=== PATIENT | female | born 1995 | race Caucasian/White ===

== ENCOUNTER 2019-06-01 00:55 | Emergency (ER) | payer SELFPAY ==
--- NOTE | 2019-06-01 01:36 | RADIOLOGY REPORT (SQ) ---
EXAM DESCRIPTION: XR SHOULDER 2 OR MORE VIEWS COMPLETED DATE/TME: 06/01/2019 00:00 CLINICAL HISTORY: 23 years, Female, bone pain COMPARISON: None. FINDINGS: No fracture or dislocation. Soft tissues are unremarkable. IMPRESSION: No acute abnormality.
[2019-06-01] MEDS ORDERED: LIDOCAINE 5% (700 MG) TRANSDERMAL ADH..PATCH TP ONE (01:54)
[2019-06-01] MEDS ORDERED: DEXAMETHASONE SOD PHOS INJ 10 MG/1 ML VIAL IM ONE (01:54)
--- NOTE | 2019-06-01 02:00 | ER Document Report ---
HPI - HPI Time Seen by Provider: 06/01/19 01:39 Pain Level: 1 Context: Patient is a 23-year-old female presents to the emergency department with a chief complaint of left shoulder pain. Patient reports this did develop 1 week ago. Patient denies a specific injury or fall. Patient states with work she does a lot of repetitive movement with her shoulder. Patient reports she has taken multiple ibuprofen without relief. Patient states the pain to the left shoulder is worse with movement. Patient denies dislocation or deformity. Patient denies previous surgery to the shoulder. Patient denies numbness or tingling down the arm. Patient states at times she does feel a sharp pain that radiates from the shoulder to the left forearm. - REPRODUCTIVE Reproductive: DENIES: : Past Medical History - General Information source: Patient - Social History Smoking Status: Unknown if Ever Smoked Lives with: Family Family History: None - Past Medical History Cardiac Medical History: Reports: None Pulmonary Medical History: Reports: None EENT Medical History: Reports: None Neurological Medical History: Reports: None Endocrine Medical History: Reports: None Renal/ Medical History: Reports: None Malignancy Medical History: Reports: None GI Medical History: Reports: None Musculoskeletal Medical History: Reports None Skin Medical History: Reports None Psychiatric Medical History: Reports: None Traumatic Medical History: Reports: None Infectious Medical History: Reports: None Surgical Hx: Negative Vertical Provider Document - CONSTITUTIONAL Agree With Documented VS: Yes Exam Limitations: No Limitations General Appearance: No Apparent Distress - INFECTION CONTROL TRAVEL OUTSIDE OF THE [place] IN LAST 30 DAYS: No - HEENT HEENT: Atraumatic, Normocephalic, PERRLA - NECK Neck: Normal Inspection - RESPIRATORY Respiratory: Breath Sounds Normal, No Respiratory Distress - CARDIOVASCULAR Cardiovascular: Regular Rate, Regular Rhythm - GI/ABDOMEN Gastrointestinal: Abdomen Soft, Abdomen Non-Tender, Normal Bowel Sounds - MUSCULOSKELETAL/EXTREMETIES Notes: Tenderness noted to the lateral and anterior aspect of the left shoulder. There is no obvious edema, ecchymosis, erythema. Patient has active range of motion to the left shoulder joint although this does induce pain. 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 - NEURO Level of Consciousness: Awake, Alert, Appropriate - DERM Integumentary: Warm, Dry, No Rash Course - Vital Signs Vital signs: Temp Pulse Resp BP Pulse Ox 98.3 F 98 16 111/69 98 06/01/19 01:05 06/01/19 01:05 06/01/19 01:05 06/01/19 01:05 06/01/19 01:05 - Diagnostic Test Radiology reviewed: Reports reviewed Radiology results interpreted by me: 06/01/19 02:04 Shoulder X-Ray 06/01/19 00:00 IMPRESSION: No acute abnormality. Discharge - Discharge Clinical Impression: Shoulder pain Qualifiers: Chronicity: acute Laterality: left Qualified Code(s): M25.512 - Pain in left shoulder Muscle strain of left shoulder Qualifiers: Encounter type: initial encounter Qualified Code(s): S46.912A - Strain of unspecified muscle, fascia and tendon at shoulder and upper arm level, left arm, initial encounter Condition: Stable Disposition: HOME, SELF-CARE Additional Instructions: Today you are seen the emergency department for shoulder injury. Please rest over the next few days and avoid strenuous activity or heavy lifting with the left shoulder. The x-ray of your shoulder was negative for any acute abnormality such as fracture dislocation. Some injuries to involve a partial patellar of the rotator cuff which is only suspected after he failed to improve after conservative measures. I am giving you a prescription for lidocaine patches to take for pain. Please seek medical attention if you have any severe pain that is not controlled, numbness or loss of function. Shoulder Injury You have injured your shoulder. This usually results from stretching or tearing of the tendons during trauma. Time and protection are required in order to heal properly. Many injuries are quite disabling, and should be taken seriously. Initial treatment includes cold packs and a sling to rest the shoulder. The physician has assessed the seriousness of your injury, and has outlined a treatment plan. Understand that this treatment may change, depending on how you progress. If a re-examination was recommended, it is important that you follow up as instructed. Some shoulder injuries (such as partial tear of the rotator cuff) are only suspected after you've failed to improve. Call us if there's severe pain, numbness, or loss of function. Prescriptions: Lidocaine [Lidoderm 5% (700 mg) Transdermal Patch] 1 patch TP DAILY #10 adh..patch Forms: Return to Work Referrals: KIMBERLY GARCIA DO [ACTIVE STAFF] - Follow up as needed BABITA ARIAS MD [ACTIVE STAFF] - Follow up as needed LUCA JOHNSON MD [ACTIVE PROVISIONAL STAFF] - Follow up as needed
[2019-06-01 02:20] VITALS: BP 107/62
== END 2019-06-01 02:20 | disposition home or self-care (01) ==
LOC: ER 00:55
DX: S46.912A Strain of unspecified muscle, fascia and tendon at shoulder and upper arm level, left arm, initial encounter (principal); M25.512 Pain in left shoulder; X58.XXXA Exposure to other specified factors, initial encounter
CPT/HCPCS: 99283; 96372; 73030; J1100

== ENCOUNTER 2019-06-18 01:19 | Emergency (ER) | payer SELFPAY ==
--- NOTE | 2019-06-18 02:56 | ER Document Report ---
ED Extremity Problem, Upper - General Chief Complaint: Shoulder Pain Stated Complaint: LEFT SHOULDER PAIN Time Seen by Provider: 06/18/19 02:55 Primary Care Provider: BABITA ARIAS MD [ACTIVE STAFF] - Follow up as needed Mode of Arrival: Ambulatory Information source: Patient Notes: HISTORY OF PRESENT ILLNESS: Patient is a 23-year-old female with no significant past medical history who presents with 2 weeks of persistent and continuously getting worse left shoulder pain. Patient does not remember an injury, presented 2 weeks ago after symptom onset where x-rays were negative. Patient was told she had "either a pulled muscle or rotator cuff tear," but she never followed up with orthopedic surgery. Mechanism of injury: Unknown mechanism Location: Left shoulder Onset: 2 weeks ago gradual Provocation: Movement Quality: Aching, throbbing, sharp Radiation: None Severity: Severe Timing: Constant Numbness/Tingling: None Dominant hand: Right REVIEW OF SYSTEMS: CONSTITUTIONAL : Denies fever or chills, no sweats. Denies recent illness. EENT: Denies eye, ear, throat, or mouth pain or symptoms. Denies nasal or sinus congestion. CARDIOVASCULAR: Denies chest pain. RESPIRATORY: Denies cough, cold, or chest congestion. Denies shortness of breath, difficulty breathing, or wheezing. GASTROINTESTINAL: Denies abdominal pain. Denies nausea, vomiting, or diarrhea. Denies constipation. GENITOURINARY: Denies difficulty urinating, painful urination, burning, frequency, or blood in urine. FEMALE GENITOURINARY: Denies vaginal bleeding, abnormal or irregular periods. Last menstrual period MUSCULOSKELETAL: Positive for left shoulder pain. SKIN: Denies rash or skin lesions. HEMATOLOGIC : Denies easy bruising or bleeding. LYMPHATIC: Denies swollen, enlarged glands. NEUROLOGICAL: Denies weakness or paralysis or loss of use of either side. Denies problems with gait or speech. Denies sensory or motor loss. PSYCHIATRIC: Denies anxiety or stress or depression. All other systems reviewed and negative. PHYSICAL EXAMINATION: GENERAL: Well-appearing, well-nourished and in no acute distress. HEAD: Atraumatic, normocephalic. No scalp deformity, depression, or crepitance. EYES: Pupils are 3 mm and equal/round/reactive to light, extraocular movements intact, sclera anicteric, conjunctiva are normal. ENT: Nares patent bilaterally, oropharynx clear without exudates or palatal petechia. Moist mucous membranes. No tonsil hypertrophy. NECK: Normal range of motion, supple without lymphadenopathy. LUNGS: Breath sounds present, equal, and clear to auscultation bilaterally. No wheezes, rales, or rhonchi. HEART: Regular rate and rhythm without murmurs, rubs, or gallops. 2+ peripheral pulses. Normal capillary refill. ABDOMEN: Soft, nontender, nondistended. Normoactive bowel sounds. No guarding, no rebound. No masses appreciated. BACK: Normal contour, no midline tenderness. Rectal exam deferred. GENITAL/PELVC: Deferred. EXTREMITIES: Moderate tenderness to both the anterior and posterior aspects of the left shoulder, reduced range of motion secondary to pain, no obvious deformity. No pitting or edema. No cyanosis and normal capillary refill <2 seconds. NEUROLOGICAL: No focal neurological deficits. Moves all extremities spontaneously and on command. PSYCH: Normal mood, normal affect. No suicidal thoughts/ideations. No homicidal thoughts/ideations. No hallucinations. SKIN: Warm, dry, normal turgor, no rashes or lesions noted. ASSESSMENT AND PLAN: This patient is a 23-year-old female who presents with persistent left shoulder pain that most likely represents tendinitis versus bursitis versus rotator cuff injury. 1. Will given intramuscular Toradol, apply sling, and reassess. 2. Will have the patient follow-up with orthopedic surgery. TRAVEL OUTSIDE OF THE [place] IN LAST 30 DAYS: No - HPI Patient complains to provider of: Pain, Left, Shoulder Onset: Other - 2 weeks ago Recent injury: No Quality of pain: Achy, Sharp Severity of pain: Severe, Constant, Still present Pain Level: 5 Context: Other Associated symptoms: None. denies: Tingling Exacerbated by: Movement Relieved by: Positioning Similar symptoms previously: Yes Recently seen / treated by doctor: Yes - Related Data Allergies/Adverse Reactions: No Known Allergies Allergy (Verified 06/18/19 01:24) Past Medical History - General Information source: Patient - Social History Smoking Status: Current Every Day Smoker Chew tobacco use (# tins/day): No Frequency of alcohol use: None Drug Abuse: None Lives with: Alone Family History: None Patient has suicidal ideation: No Patient has homicidal ideation: No - Medical History Medical History: Negative - Past Medical History Cardiac Medical History: Reports: None Pulmonary Medical History: Reports: None EENT Medical History: Reports: None Neurological Medical History: Reports: None Endocrine Medical History: Reports: None Renal/ Medical History: Reports: None. Denies: Hx Peritoneal Dialysis Malignancy Medical History: Reports: None GI Medical History: Reports: None Musculoskeletal Medical History: Reports Other - History of shoulder pain Skin Medical History: Reports None Psychiatric Medical History: Reports: None Traumatic Medical History: Reports: None Infectious Medical History: Reports: None Surgical Hx: Negative Past Surgical History: Reports: None - Immunizations Immunizations up to date: Yes Review of Systems - Review of Systems Constitutional: No symptoms reported EENT: No symptoms reported Cardiovascular: No symptoms reported Respiratory: No symptoms reported Gastrointestinal: No symptoms reported Genitourinary: No symptoms reported Female Genitourinary: No symptoms reported Musculoskeletal: See HPI, Joint pain Skin: No symptoms reported Hematologic/Lymphatic: No symptoms reported Neurological/Psychological: No symptoms reported -: Yes All other systems reviewed and negative Physical Exam - Vital signs Vitals: Temp Pulse Resp BP Pulse Ox 98.6 F 90 15 112/68 97 06/18/19 01:21 06/18/19 01:21 06/18/19 01:21 06/18/19 01:21 06/18/19 01:21 Interpretation: Normal Course - Re-evaluation Re-evalutation: 06/18/19 05:30 Will discharge the patient home with strict return precautions and follow-up with orthopedic surgery. All results were explained to and discussed with the patient, and all questions addressed and answered for the patient. The patient voices both understanding and agreeing with the plan. - Vital Signs Vital signs: Temp Pulse Resp BP Pulse Ox 97.8 F 64 16 105/60 100 06/18/19 04:49 06/18/19 04:49 06/18/19 04:49 06/18/19 04:49 06/18/19 04:49 - Diagnostic Test Radiology reviewed: Image reviewed Discharge - Discharge Clinical Impression: Left shoulder tendinitis Condition: Good Disposition: HOME, SELF-CARE Instructions: Tendonitis ([facility]) Additional Instructions: You have been evaluated in the Emergency Department for left shoulder pain. While here, you were given medications and it is now safe to be discharged home. Please follow-up with your orthopedic surgery as instructed in one week to be rechecked. Return to the Emergency Department if you experience worsening pain, the inability to move the left arm, or any other concerning symptoms. Prescriptions: Diclofenac Sodium 75 mg PO BID #30 tablet.dr Forms: Return to Work Referrals: BABITA ARIAS MD [ACTIVE STAFF] - Follow up as needed Print Language: Bel[place]an
[2019-06-18] MEDS ORDERED: KETOROLAC TROMETHAMINE 60 MG/2 ML SDV IM ONE (03:47)
[2019-06-18 04:56] VITALS: BP 105/60
== END 2019-06-18 04:56 | disposition home or self-care (01) ==
LOC: ER 01:19
DX: M75.92 Shoulder lesion, unspecified, left shoulder (principal); F17.200 Nicotine dependence, unspecified, uncomplicated
CPT/HCPCS: J1885

== ENCOUNTER 2019-11-04 20:10 | Emergency (ER) | payer SELFPAY ==
--- NOTE | 2019-11-04 21:46 | ER Document Report ---
ED Medical Screen (RME) - General Chief Complaint: Flank Pain Stated Complaint: RIGHT FLANK PAIN Time Seen by Provider: 11/04/19 21:46 Mode of Arrival: Ambulatory Information source: Patient Notes: 23-year-old female presented to ED for complaint of right flank pain for the last 3 to 4 days. She states she has not ever had any kidney stone she has had UTIs. She states it does burn to urinate. There is no pain on the left it is only pain on the right flank. She states she has had some nausea vomited today. She states she has felt like she was cold but her face would be burning up. S he denies use of any Tylenol or Motrin today and her temp is 99.3 in the emergency room. She states she has been snacking on some chicken flavored crackers and drinking water while in the waiting room. I have greeted and performed a rapid initial assessment of this patient. A comprehensive ED assessment and evaluation of the patient, analysis of test results and completion of medical decision making process will be conducted by an additional ED providers. TRAVEL OUTSIDE OF THE [place] IN LAST 30 DAYS: No - Related Data Allergies/Adverse Reactions: No Known Allergies Allergy (Verified 06/18/19 01:24) Past Medical History Renal/ Medical History: Denies: Hx Peritoneal Dialysis - Immunizations Immunizations up to date: Yes Physical Exam - Vital signs Vitals: Temp Pulse Resp BP Pulse Ox 99.3 F 111 H 16 121/67 99 11/04/19 20:35 11/04/19 20:35 11/04/19 20:35 11/04/19 20:35 11/04/19 20:35 Course - Vital Signs Vital signs: Temp Pulse Resp BP Pulse Ox 99.3 F 111 H 16 121/67 99 11/04/19 20:35 11/04/19 20:35 11/04/19 20:35 11/04/19 20:35 11/04/19 20:35
[2019-11-04] MEDS ORDERED: IBUPROFEN 600 MG TABLET PO ONE (21:50)
[2019-11-04 22:59] LABS: ABSOLUTE MONOCYTES (AUTO) 1.5 10^3/uL (0.1-1.4); ABSOLUTE NEUT (AUTO) 11.9 10^3/uL (1.7-8.2); BASOPHILS % (AUTO) 0.3 % (0-2); EOSINOPHILS % (AUTO) 0.2 % (0-6); HEMATOCRIT 40.2 % (36.0-47.0); HEMOGLOBIN 13.9 g/dL (12.0-15.5); MEAN CORPUSCULAR HEMOGLOBIN 31.1 pg (27.0-33.4); MEAN CORPUSCULAR HGB CONC 34.4 g/dL (32.0-36.0); MEAN CORPUSCULAR VOLUME 90 fl (80-97); MONOCYTES % (AUTO) 10.2 % (3-13); PLATELET COUNT 199 10^3/uL (150-450); RED BLOOD COUNT 4.46 10^6/uL (3.72-5.28); RED CELL DISTRIBUTION WIDTH 12.7 % (11.5-14.0); SEGMENTED NEUTROPHILS % (AUTO) 82.3 % (42-78); TOTAL CELLS COUNTED % (AUTO) 100 %; WHITE BLOOD COUNT 14.5 10^3/uL (4.0-10.5)
[2019-11-04 23:06] LABS: APPEARANCE,URINE CLOUDY; BILIRUBIN,URINE NEGATIVE (NEGATIVE); COLOR,URINE YELLOW; GLUCOSE, URINE NEGATIVE (NEGATIVE); KETONES,URINE NEGATIVE (NEGATIVE); PROTEIN,URINE 30 mg/dL (NEGATIVE); URINE SPECIFIC GRAVITY 1.008; UROBILINOGEN,URINE NEGATIVE mg/dL (<2.0)
[2019-11-04 23:16] LABS: ALBUMIN 4.1 g/dL (3.5-5.0); ALKALINE PHOSPHATASE 55 U/L (38-126); ANION GAP 8 (5-19); ASPARTATE AMINO TRANSFERASE 17 U/L (14-36); BILIRUBIN,DIRECT 0.1 mg/dL (0.0-0.4); BLOOD UREA NITROGEN 11 mg/dL (7-20); CALCIUM 9.2 mg/dL (8.4-10.2); CARBON DIOXIDE 29 mmol/L (22-30); CHLORIDE 101 mmol/L (98-107); GLUCOSE 91 mg/dL (75-110); POTASSIUM 4.5 mmol/L (3.6-5.0); TOTAL PROTEIN 6.8 g/dL (6.3-8.2)
[2019-11-04] MEDS ORDERED: NORMAL SALINE 1000 ML 1,000 ML IV ONE (23:50)
[2019-11-05] MEDS ORDERED: ONDANSETRON HCL INJ/PF 4 MG/2 ML SDV IV ONE (00:05)
[2019-11-05] MEDS ORDERED: KETOROLAC TROMETHAMINE INJ/PF 30 MG/1 ML SDV IV ONE (00:05)
[2019-11-05] MEDS ORDERED: CEFTRIAXONE 1 GM/D5W RTU 1 GM/50 ML RTUPB IV ONE (00:26)
--- NOTE | 2019-11-05 00:30 | ER Document Report ---
ED General - General Mode of Arrival: Ambulatory TRAVEL OUTSIDE OF THE [place] IN LAST 30 DAYS: No <KEY PEARSON - Last Filed: 11/05/19 02:52> <SACHI ZENG - Last Filed: 11/05/19 05:46> - General Chief Complaint: Flank Pain Stated Complaint: RIGHT FLANK PAIN Time Seen by Provider: 11/04/19 21:46 Primary Care Provider: [facility] [Provider Group] - Follow up in 3-5 days ELIZABETH HUTTON MD [COMMUNITY BASED STAFF] - Follow up in 3-5 days Notes: 24-year-old female with history of UTIs presents for right flank pain for the past 3-4 days with associated dysuria and nausea/vomiting. Patient denies any history of kidney stones. Patient denies any diarrhea or constipation. (KEY PEARSON) - Related Data Allergies/Adverse Reactions: No Known Allergies Allergy (Verified 06/18/19 01:24) Past Medical History - General Information source: Patient - Social History Smoking Status: Unknown if Ever Smoked Family History: None Patient has suicidal ideation: No Patient has homicidal ideation: No Renal/ Medical History: Denies: Hx Peritoneal Dialysis - Immunizations Immunizations up to date: Yes <KEY PEARSON - Last Filed: 11/05/19 02:52> Review of Systems <KEY PEARSON - Last Filed: 11/05/19 02:52> - Review of Systems Notes: Constitutional: Negative for fever. HENT: Negative for sore throat. Eyes: Negative for visual changes. Cardiovascular: Negative for chest pain. Respiratory: Negative for shortness of breath. Gastrointestinal: Positive for right flank pain and nausea/vomiting. Negative for abdominal pain or diarrhea. Genitourinary: Positive for dysuria. Musculoskeletal: Negative for back pain. Skin: Negative for rash. Neurological: Negative for headaches, weakness or numbness. 10 point ROS negative except as marked above and in HPI. (KEY PEARSON) Physical Exam <KEY PEARSON - Last Filed: 11/05/19 02:52> - Vital signs Interpretation: Normal - General General appearance: Appears well, Alert - HEENT Head: Normocephalic, Atraumatic Eyes: Normal Pupils: PERRL - Respiratory Respiratory status: No respiratory distress Chest status: Nontender Breath sounds: Normal Chest palpation: Normal - Cardiovascular Rhythm: Regular Heart sounds: Normal auscultation Murmur: No - Abdominal Inspection: Normal Distension: No distension Bowel sounds: Normal Tenderness: Nontender Organomegaly: No organomegaly - Back Back: Normal, Nontender - Extremities General upper extremity: Normal inspection, Nontender, Normal color, Normal ROM, Normal temperature General lower extremity: Normal inspection, Nontender, Normal color, Normal ROM, Normal temperature, Normal weight bearing. No: Celestina's sign - Neurological Neuro grossly intact: Yes Cognition: Normal Orientation: AAOx4 [place] Coma Scale Eye Opening: Spontaneous [place] Coma Scale Verbal: Oriented [place] Coma Scale Motor: Obeys Commands Rahel Coma Scale Total: 15 Speech: Normal Motor strength normal: LUE, RUE, LLE, RLE Sensory: Normal - Psychological Associated symptoms: Normal affect, Normal mood - Skin Skin Temperature: Warm Skin Moisture: Dry Skin Color: Normal <SACHI ZENG P - Last Filed: 11/05/19 05:46> - Vital signs Vitals: Temp Pulse Resp BP Pulse Ox 99.3 F 111 H 16 121/67 99 11/04/19 20:35 11/04/19 20:35 11/04/19 20:35 11/04/19 20:35 11/04/19 20:35 - Notes Notes: GENERAL: Well-appearing, well-nourished and in no acute distress. HEAD: Atraumatic, normocephalic. EYES: Extraocular movements intact, sclera anicteric, conjunctiva are normal. NECK: Normal range of motion, supple without lymphadenopathy or JVD. LUNGS: Breath sounds clear to auscultation bilaterally and equal. No wheezes rales or rhonchi. HEART: Regular rate and rhythm without murmurs, rubs or gallops. ABDOMEN: Soft, mild tenderness to right side. No guarding, no rebound. No masses appreciated. + CVA tenderness on right. EXTREMITIES: Normal range of motion, no pitting or edema. No clubbing or cyanosis. NEUROLOGICAL: Cranial nerves II through XII grossly intact. Normal speech, normal gait. PSYCH: Normal mood, normal affect. SKIN: Warm, Dry, normal turgor, no rashes or lesions noted. (PEARSON,KEY R) Course - Laboratory Result Diagrams: 11/04/19 22:40 11/04/19 22:40 <KEY PEARSON R - Last Filed: 11/05/19 02:52> - Laboratory Result Diagrams: 11/04/19 22:40 11/04/19 22:40 <SACHI ZENG P - Last Filed: 11/05/19 05:46> - Re-evaluation Re-evalutation: 11/05/19 nontoxic, well-appearing 24-year-old female presents with right flank pain, dysuria, nausea/vomiting for the past 3 to 4 days. Patient's UA does show a urinary tract infection and she has a mild leukocytosis. Patient is mildly tachycardic upon presentation to triage. Patient is afebrile. CT abdomen/pelvis without contrast was ordered to rule out kidney stone in triage. Abdomen soft mildly tender to right side. CVA tenderness on right. IV normal saline bolus ordered. Zofran ordered. Toradol ordered. Rocephin 1 g ordered. 11/05/19 02:52 Pt appears clinically improved. Pt's CT shows no kidney stones however shows a 5 mm nodule in right lung. Report printed and discussed with pt and pt was given follow up with PCP outpatient. Pt also given prescription for Keflex, ibuprofen, and Zofran. Pt given strict return precautions. Pt voices understanding and agrees with plan of care. (KEY PEARSON) - Vital Signs Vital signs: Temp Pulse Resp BP Pulse Ox 97.4 F 69 17 96/41 L 97 11/05/19 02:59 11/05/19 02:59 11/05/19 02:59 11/05/19 02:59 11/05/19 02:59 - Laboratory Laboratory results interpreted by me: 11/04/19 11/04/19 22:40 22:40 WBC 14.5 H Lymph % (Auto) 7.0 L Absolute Neuts (auto) 11.9 H Absolute Monos (auto) 1.5 H Seg Neutrophils % 82.3 H Urine Protein 30 H Urine Blood MODERATE H Urine Nitrite (Reflex) POSITIVE H Leukocyte Esterase Rfl LARGE H Discharge <KEY PEARSON R - Last Filed: 11/05/19 02:52> <SACHI ZENG P - Last Filed: 11/05/19 05:46> - Discharge Clinical Impression: Pyelonephritis Condition: Stable Disposition: HOME, SELF-CARE Instructions: Cephalexin ([facility]), Pyelonephritis ([facility]) Additional Instructions: Your work-up shows that you have a kidney infection. Your CT scan did not show any kidney stones. It did show a 5 mm nodule in the right lower lobe of your lung. Please take antibiotics as prescribed and finish all doses unless we call you to change it based off of your urine culture. Please take pain medicine and nausea medicine as prescribed. Follow-up with your primary care doctor or 1 of the clinics listed in 3 to 5 days concerning your kidney infection and this nodule on your CT. Return immediately to ER if you start having any worsening symptoms, including worsening pain, fever, vomiting not controlled by medication, abdominal pain, diarrhea, constipation, chest pain, shortness of breath, or any other symptoms that are concerning to you. Prescriptions: Cephalexin Monohydrate [Keflex 500 mg Capsule] 500 mg PO Q6H 10 Days #40 capsule Ibuprofen [Motrin 800 mg Tablet] 800 mg PO Q8H PRN #30 tab PRN Reason: Ondansetron [Zofran Odt 4 mg Tablet] 1 - 2 tab PO Q4H PRN #15 tab.rapdis PRN Reason: For Nausea/Vomiting Ondansetron [Zofran Odt 4 mg Tablet] 1 - 2 tab PO Q4H PRN #15 tab.rapdis PRN Reason: For Nausea/Vomiting Forms: Return to Work Referrals: ELIZABETH HUTTON MD [COMMUNITY BASED STAFF] - Follow up in 3-5 days [facility] [Provider Group] - Follow up in 3-5 days
--- NOTE | 2019-11-05 01:20 | RADIOLOGY REPORT (SQ) ---
EXAM DESCRIPTION: Noncontrast CT abdomen pelvis CLINICAL HISTORY: 24 years Female Right flank pain. HCG NEG COMPARISON: None. TECHNIQUE: Contiguous axial images obtained through the abdomen and pelvis without the use of IV contrast. Reformatted images obtained. This exam was performed according to our department optimization program which includes automated exposure control, adjustment of the mA and/or kv according to patient size and/or use of iterative reconstruction technique. FINDINGS: There is a 5 mm solid appearing nodule within the right lower lobe (CT image 8). The liver appears unremarkable. The spleen and pancreas appear unremarkable. No adrenal masses. The kidneys appear unremarkable. No hydronephrosis. The gallbladder is visualized. No aneurysmal dilatation of the aorta. No bowel obstruction. Moderate to large colonic stool burden. The appendix is unable to be definitively identified given paucity of intra-abdominal fat. No significant free fluid noted. No suspicious lytic or blastic osseous lesions are identified. IMPRESSION: 1. No evidence of nephrolithiasis or hydronephrosis. 2. Moderate to large colonic stool burden. Correlate clinically for constipation. 3. 5 mm solid nodule within the right lower lobe. Findings are nonspecific. Please note, Fleischner criteria does not apply given patient's age.
[2019-11-05 03:00] VITALS: BP 96/41
== END 2019-11-05 03:24 | disposition home or self-care (01) ==
LOC: ER 20:10
DX: N12 Tubulo-interstitial nephritis, not specified as acute or chronic (principal); R10.9 Unspecified abdominal pain; R30.0 Dysuria; R11.2 Nausea with vomiting, unspecified
CPT/HCPCS: 99284; 96361; 96375; 96365; 96366; 36415; 87086; 84703; 85025; 87088; 80053; 81001; 87186; 74176; J1885; J2405; J7030; J0696